=== PATIENT | female | born 1940 | race African-American/Black ===

== ENCOUNTER 2020-07-26 04:18 | Emergency (ER) | payer OTHER ==
[~2020-07-26] VITALS: Ht 160 cm; Wt 61.7 kg
[2020-07-26] MEDS ORDERED: FAMOTIDINE 20MG/2ML VIAL IV ONE (04:30)
[2020-07-26] MEDS ORDERED: ONDANSETRON HCL 4MG/2ML INJ IV ONE ×2 (04:30→06:45)
[2020-07-26] MEDS ORDERED: SODIUM CHLORIDE 0.9% 1,000 ML IV ONE (04:30)
[2020-07-26 05:27] LABS: BASOPHILS % 0.6 % (0.0-2.0); HEMATOCRIT. 34.5 % (36.0-48.0); HEMOGLOBIN. 11.3 g/dL (12.0-16.0); MEAN CORPUSCULAR HEMOGLOBIN 29.8 pg (28.0-32.0); MEAN CORPUSCULAR VOLUME 91.3 fL (81.0-99.0); MEAN PLATELET VOLUME 8.7 fl (7.4-10.4); MONOCYTES % 3.3 % (2.0-8.0); NEUTROPHILS % 87.1 % (40.0-76.0); PLATELET 316 x1000/uL (130-400); RED BLOOD CELL COUNT 3.78 mill/uL (4.2-5.4); RED CELL DISTRIBUTION WIDTH 15.6 % (11.6-14.6)
[2020-07-26 05:34] LABS: PROTHROMBIN TIME 10.7 sec (9.6-11.0)
[2020-07-26 05:36] LABS: CHLORIDE 93 mEq/L (98-107)
[2020-07-26] MEDS ORDERED: ONDA4TAB5 MT (07:38)
[2020-07-26 08:03] VITALS: BP 144/63
== END 2020-07-26 09:20 | disposition home or self-care (01) ==
LOC: ER 04:18
DX: E87.3 Alkalosis (principal); E86.0 Dehydration; R10.13 Epigastric pain; R10.811 Right upper quadrant abdominal tenderness; I10 Essential (primary) hypertension; Z87.19 Personal history of other diseases of the digestive system; I69.354 Hemiplegia and hemiparesis following cerebral infarction affecting left non-dominant side
CPT/HCPCS: 36415; 71045; 74176; 76705; 80053; 83605; 83690; 83880; 84145; 84484; 85025; 85610; 87040; 93005; 96361; 96374; 96375; 96376; 99285; J2405; J3490; J7030

== ENCOUNTER 2020-08-22 00:51 | Emergency (ER) | payer OTHER ==
[~2020-08-22] VITALS: Ht 162.6 cm; Wt 78.0 kg
[~2020-08-22 00:51] MED LIST: ONDA4TAB5 MT
[2020-08-22] MEDS ORDERED: ACETAMINOPHEN 325MG TABLET PO SCH (01:30)
[2020-08-22 01:37] LABS: BASOPHILS % 0.6 % (0.0-2.0); EOSINOPHILS % 7.4 % (0.0-5.0); HEMATOCRIT. 29.5 % (36.0-48.0); HEMOGLOBIN. 9.7 g/dL (12.0-16.0); LYMPHOCYTES % 31.5 % (20.0-50.0); MEAN CORPUSCULAR HEMOGLOBIN 29.6 pg (28.0-32.0); MEAN PLATELET VOLUME 8.6 fl (7.4-10.4); MONOCYTES % 6.6 % (2.0-8.0); NEUTROPHILS % 53.9 % (40.0-76.0); PLATELET 246 x1000/uL (130-400); RED BLOOD CELL COUNT 3.28 mill/uL (4.2-5.4); RED CELL DISTRIBUTION WIDTH 16.2 % (11.6-14.6)
[2020-08-22 01:44] LABS: CHLORIDE 104 mEq/L (98-107)
[2020-08-22 01:53] LABS: CREATINE KINASE 103 IU/L (26-192)
[2020-08-22] MEDS ORDERED: MORPHINE SULFATE 2 MG/ML CPJ (NOT FOR IM USE) IV SCH (03:30)
[2020-08-22 03:46] LABS: INR 0.9; PROTHROMBIN TIME 10.1 sec (9.6-11.0)
[2020-08-22] MEDS ORDERED: HYDR-4346 MT (05:27)
[2020-08-22 10:00] VITALS: BP 127/50
== END 2020-08-22 10:39 | disposition home or self-care (01) ==
LOC: ER 00:51
DX: M62.422 Contracture of muscle, left upper arm (principal); M79.602 Pain in left arm; K21.9 Gastro-esophageal reflux disease without esophagitis; I10 Essential (primary) hypertension; Z86.73 Personal history of transient ischemic attack (TIA), and cerebral infarction without residual deficits; Z87.891 Personal history of nicotine dependence; Z88.2 Allergy status to sulfonamides; Z88.5 Allergy status to narcotic agent
CPT/HCPCS: 36415; 80053; 82550; 85025; 85610; 93005; 96374; 99285; J2270

== ENCOUNTER 2020-09-22 00:17 | Emergency (ER) | payer OTHER ==
[~2020-09-22] VITALS: Ht 157.5 cm; Wt 61.0 kg
[~2020-09-22 00:17] MED LIST changes: +HYDR-4346 MT
[2020-09-22 01:45] LABS: BASOPHILS % 0.9 % (0.0-2.0); EOSINOPHILS % 3.9 % (0.0-5.0); HEMATOCRIT. 29.3 % (36.0-48.0); HEMOGLOBIN. 9.7 g/dL (12.0-16.0); LYMPHOCYTES % 24.5 % (20.0-50.0); MEAN CORPUSCULAR HEMOGLOBIN 30.4 pg (28.0-32.0); MEAN CORPUSCULAR VOLUME 91.6 fL (81.0-99.0); MEAN PLATELET VOLUME 9.5 fl (7.4-10.4); MONOCYTES % 8.1 % (2.0-8.0); NEUTROPHILS % 62.6 % (40.0-76.0); PLATELET 208 x1000/uL (130-400); RED CELL DISTRIBUTION WIDTH 17.7 % (11.6-14.6)
[2020-09-22 01:53] LABS: CHLORIDE 110 mEq/L (98-107)
[2020-09-22 01:57] LABS: ETHANOL BLOOD < 10 mg/dL
[2020-09-22 02:08] LABS: CLARITY URINE CLEAR (CLEAR); COLOR URINE YELLOW (YELLOW); KETONES URINE NEGATIVE (NEGATIVE); LEUKOCYTE ESTERASE URINE NEGATIVE (NEGATIVE); NITRITE URINE NEGATIVE (NEGATIVE); OCCULT BLOOD URINE NEGATIVE (NEGATIVE); PH URINE 5.5 (4.5-8.0); PROTEIN URINE NEGATIVE (NEGATIVE); SPECIFIC GRAVITY URINE 1.013 (1.005-1.030); UROBILINOGEN URINE 0.2 E.U./dL (0.2-1.0)
[2020-09-22 02:18] LABS: *AMPHETAMINES SCREEN URINE NEGATIVE (NEGATIVE); *BARBITURATES SCREEN URINE NEGATIVE (NEGATIVE)
[2020-09-22 02:19] LABS: *BENZODIAZEPINES SCREEN URINE NEGATIVE (NEGATIVE); *COCAINE SCREEN URINE NEGATIVE (NEGATIVE); METHADONE URINE SCREEN NEGATIVE (NEGATIVE); OPIATES URINE SCREEN NEGATIVE (NEGATIVE); PHENCYCLIDINE URINE SCREEN NEGATIVE (NEGATIVE)
[2020-09-22 02:20] LABS: CANNABINOID URINE SCREEN NEGATIVE (NEGATIVE)
[2020-09-22 10:21] VITALS: BP 153/42
== END 2020-09-22 10:35 | disposition short-term general hospital (02) ==
LOC: ER 00:17
DX: R44.1 Visual hallucinations (principal); I10 Essential (primary) hypertension; Z86.73 Personal history of transient ischemic attack (TIA), and cerebral infarction without residual deficits; Z88.5 Allergy status to narcotic agent; Z88.2 Allergy status to sulfonamides
CPT/HCPCS: 36415; 80053; 80305; 80307; 80320; 80329; 81003; 82962; 85025; 93005; 99285; G0480

== ENCOUNTER 2021-05-15 03:53 | Emergency (ER) | payer OTHER ==
[~2021-05-15] VITALS: Ht 167.6 cm; Wt 59.0 kg
[2021-05-15] MEDS ORDERED: ACETAMINOPHEN 325MG TABLET PO STA (06:02)
[2021-05-15] MEDS ORDERED: SODIUM CHLORIDE 0.9% 1,000 ML IV ONE (06:15)
[2021-05-15 06:32] LABS: CHLORIDE 104 mEq/L (98-107)
[2021-05-15 06:36] LABS: CLARITY URINE CLEAR (CLEAR); COLOR URINE YELLOW (YELLOW); KETONES URINE NEGATIVE (NEGATIVE); LEUKOCYTE ESTERASE URINE NEGATIVE (NEGATIVE); NITRITE URINE NEGATIVE (NEGATIVE); OCCULT BLOOD URINE NEGATIVE (NEGATIVE); PH URINE 6.5 (4.5-8.0); PROTEIN URINE NEGATIVE (NEGATIVE); SPECIFIC GRAVITY URINE 1.007 (1.005-1.030); UROBILINOGEN URINE 0.2 E.U./dL (0.2-1.0)
[2021-05-15 06:45] LABS: BASOPHILS % 0.7 % (0.0-2.0); EOSINOPHILS % 10.8 % (0.0-5.0); HEMATOCRIT. 34.2 % (36.0-48.0); HEMOGLOBIN. 11.2 g/dL (12.0-16.0); LYMPHOCYTES % 37.5 % (20.0-50.0); MEAN CORPUSCULAR HEMOGLOBIN 30.4 pg (28.0-32.0); MEAN CORPUSCULAR VOLUME 92.5 fL (81.0-99.0); MEAN PLATELET VOLUME 9.4 fl (7.4-10.4); PLATELET 216 x1000/uL (130-400)
[2021-05-15 10:10] VITALS: BP 171/58
[2021-05-15] MEDS ORDERED: AMLODIPINE 2.5MG TABLET PO ONE (10:15)
== END 2021-05-15 10:24 | disposition short-term general hospital (02) ==
LOC: ER 03:53 → EDBEDREQ 06:10 → ER 10:24 → CANBEDREQ 13:29
DX: R53.1 Weakness (principal); E86.0 Dehydration; I10 Essential (primary) hypertension; Z86.73 Personal history of transient ischemic attack (TIA), and cerebral infarction without residual deficits; Z90.710 Acquired absence of both cervix and uterus; Z88.2 Allergy status to sulfonamides
CPT/HCPCS: 36415; 70450; 71045; 80053; 81003; 85025; 93005; 99285; J7030